=== PATIENT | male | born 1990 | race Caucasian/White ===

== ENCOUNTER 2017-04-16 19:53 | Emergency (ER) | payer SELFPAY ==
--- NOTE | 2017-04-16 20:56 | EDPHY ---
H & P Stated Complaint: cough, fever, NAVARRO, ST HPI/ROS: CHIEF COMPLAINT: Fever, headache, cough HISTORY OF PRESENT ILLNESS: The patient is a 27 y/o male complaining of worsening fever, headache, and coughing onset four days ago. He has been taking ibuprofen today for the fever without improvement. He has associated earache and sore throat. He denies vomiting, diarrhea, abdominal pain, dysuria, or other associated symptoms. He has not had a flu shot this year. REVIEW OF SYSTEMS: A ten point review of systems was performed and is negative with the exception of the items mentioned in the HPI. Past medical history: Denies Past surgical history: Denies Family history: Non-contributory Social history: Student at , lives in [place], single, no tobacco use. General Appearance: Alert. Vital signs reviewed. Temp 38.1, HR 101, BP 133/ 94. Eyes: Pupils equal and round, no conjunctival injection, no discharge. Anicteric. ENT, Mouth: Posterior oropharynx with erythema but no edema, no exudate, mucous membranes are moist. Neck: Anterior cervical lymphadenopathy, supple. Respiratory: Lungs are clear to auscultation; no wheezes, rales, or rhonchi. Cardiovascular: Tachycardic and regular,;no murmur, rub, or gallop. Gastrointestinal: Abdomen is soft and nontender, no masses or organomegaly, bowel sounds normal. Skin: Warm and dry, no rashes on exposed skin, normal color. Back: Nontender to palpation over the thoracolumbar spine. No CVAT. Extremities: No lower extremity edema, no calf tenderness or swelling. Neurological: Alert and oriented. Moving all four extremities easily and equally. Psychiatric: Normal affect. - Personal History Current Tetanus/Diphtheria Vaccine: Yes - Medical/Surgical History Hx Asthma: No Hx Chronic Respiratory Disease: No Hx Diabetes: No Hx Cardiac Disease: No Hx Renal Disease: No Hx Cirrhosis: No Hx Alcoholism: No Hx HIV/AIDS: No Hx Splenectomy or Spleen Trauma: No Other PMH: PSHx: denies. PMHx: denies - Social History Smoking Status: Never smoked Constitutional: Initial Vital Signs Temperature (C) 38.1 C 04/16/17 20:07 Heart Rate 101 H 04/16/17 20:07 Respiratory Rate 16 04/16/17 20:07 Blood Pressure 133/94 H 04/16/17 20:07 O2 Sat (%) 93 04/16/17 20:07 O2 Delivery Mode Room Air Allergies/Adverse Reactions: No Known Allergies Allergy (Unverified 04/16/17 20:07) Home Medications: Medication Instructions Recorded HYDROcodone/HOMATROPINE HYCODA 1 tsp PO Q4-6PRN PRN #120 ml 04/16/17 [Hycodan Syrup (*)] Medical Decision Making ED Course/Re-evaluation: He received one gram tylenol PO. Temperature decreased to 37.3 from 38.1. He does not appear dehydrated. Rapid strep negative. Normal breathing, no reason to think this is pneumonia. Ear exam normal, no otitis media. No GI symptoms-- I do not suspect appendicitis, cholecystitis, or other abdominal problem. I suspect influenza. He has been ill for four days, testing will not add to the treatment plan and he agrees to forego influenza testing. Symptomatic treatment recommended and reviewed. - Data Points Medications Given: Discontinued Medications Acetaminophen (Tylenol) 1,000 mg PO EDNOW ONE Stop: 04/16/17 21:12 Last Admin: 04/16/17 21:20 Dose: 1,000 mg Departure - Departure Disposition: Home, Routine, Self-Care Clinical Impression: Influenza Condition: Good Instructions: Influenza (ED) Additional Instructions: 1. Take acetaminophen and ibuprofen as needed as directed below for the next week. 2. Use Hycodan syrup as prescribed as needed for cough. This medication will make you drowsy. Do not drive while taking this medication. 3. Avoid contact with other people until you are fever free for at least 24 hours. Wash your hands frequently. 4. Follow-up with your primary care provider if symptoms do not improve in a week to ten days. 5. Return to the ED for worsening of condition. Adult Pain & Fever Control: We recommend Acetaminophen (Tylenol) and Ibuprofen (Motrin,Advil) for pain and fever control. When fever is high or pain severe, both drugs can be used at the same time, but at different intervals. Please note the time differences. Your dose is: Acetaminophen 650mg every 4 to 6 hours Ibuprofen 600mg every 6-8 hours with food Note: do not take Acetaminophen with Hydrocodone (Vicodin, Lortab) or Oycodone (Percocet). These medications also contain Acetaminophen. No more than 3000mg of Acetaminophen should be taken in 24 hours (for an adult). Referrals: Marcus Nye DO [Medical Doctor] - As per Instructions [facility],. [Clinic] - As per Instructions Stand Alone Forms: School Excuse Prescriptions: HYDROcodone/HOMATROPINE HYCODA [Hycodan Syrup (*)] 1 tsp PO Q4-6PRN PRN #120 ml PRN Reason: Cough, Severe Report Scribed for: Breonna Roldan Report Scribed by: Melani Mondragon Date of Report: 04/16/17 Time of Report: 21:11 Physician Review and Approval Statement: 04/16/17 20:56 Portions of this note were transcribed by the medical laboratory assistant. I, Dr. Breonna Roldan, personally performed the history, physical exam, and medical decision- making; and confirmed the accuracy of the information in the transcribed note.
[2017-04-16] MEDS ORDERED: ACETAMINOPHEN 500 MG TAB PO ONE (21:11)
[2017-04-16 22:08] VITALS: BP 133/90; PULSE 92; RESP 18; TEMP 99.1; O2SAT 94
== END 2017-04-16 22:07 | disposition home or self-care (01) ==
DX: J11.1 Influenza due to unidentified influenza virus with other respiratory manifestations (principal)